=== PATIENT | female | born 1940 | race Caucasian/White ===

== ENCOUNTER → 2017-10-01 | Outpatient (CLI) | payer BC ==
[~2017-10-01] MED LIST: AMBIEN 5 MG TABL5 M1 PO; ASPIRIN EC325 M1 PO; ASPIRIN325; CELEBREX 200 M200 MG PO; COLACE 100 MG100 MG; FLEXERIL PO; FLUZONE 2045 MCG/011; HYDROCHLOROTHIA25 M1 PO; HYDROCODON-ACE1 EAC8 PO; IRON325; IRON325 PO; MIRALAX255 GM PO; MORPHINE SULFAT15 M3; NEURONTIN 300300 M1 PO; NEURONTIN 300M300 M2; NORCO 5-325 TA1 EACH; OXYCODONE HCL5 M1; OXYCONTIN10 M1 PO; OXYIR 5 MG CAPSU5 M1 PO; PNEUMOVAX25 MCG/0.5; PREVACID15 MG PO; ROXICODONE5 M1 PO; STOOL SOFTENER1 EAC2 PO; VICODIN ES TAB1 EACH PO; XARELTO10 MG PO; ZETIA10 MG PO
== END ==
LOC: M.RAD 12:45
DX: M54.5 Low back pain (principal)

== ENCOUNTER → 2017-10-14 | Outpatient (CLI) | payer BC | LOC: M.MRI 10-10 14:30 | DX: M47.816 Spondylosis without myelopathy or radiculopathy, lumbar region (principal); M51.26 Other intervertebral disc displacement, lumbar region; M51.36 Other intervertebral disc degeneration, lumbar region; M48.062 Spinal stenosis, lumbar region with neurogenic claudication; M96.1 Postlaminectomy syndrome, not elsewhere classified; M43.27 Fusion of spine, lumbosacral region ==

== ENCOUNTER → 2017-10-20 | Outpatient (CLI) | payer BC | LOC: M.ULTRA 09:06 | DX: G81.94 Hemiplegia, unspecified affecting left nondominant side (principal); I70.90 Unspecified atherosclerosis; I65.29 Occlusion and stenosis of unspecified carotid artery; M19.90 Unspecified osteoarthritis, unspecified site; I10 Essential (primary) hypertension; E78.5 Hyperlipidemia, unspecified ==

== ENCOUNTER → 2018-01-30 | Outpatient (CLI) | payer BC | LOC: M.RAD 10:04 | DX: Z12.31 Encounter for screening mammogram for malignant neoplasm of breast (principal) ==

== ENCOUNTER → 2019-04-28 | Outpatient (CLI) | payer BC ==
--- NOTE | 2019-04-28 15:36 | 2DMMODE ---
[place] [address] 2 D/M-MODE ECHOCARDIOGRAM Name: ALOK VILLALBADontae Borja Room: [facility]#: [id number] Admission: 04/28/19 Attend Phys: Radha Aguilar Discharge: Date of : 38 Date of Service: 04/28/19 1535 Report #: [id number] THIS REPORT FOR: cc: Clemencia Gilmore MD, Jennifer MD Blick,Gunner Mckay MD [facility] ~ APPROVED REPORT Study performed: 04/28/2019 12:26:36 EXAM: Comprehensive 2D, Doppler, and color-flow Echocardiogram Patient Location: Out-Patient BSA: 2.26 HR: 60 bpm BP: 138/78 mmHg Other Information Study Quality: Good Indications CAD 2D Dimensions IVSd: 12.54 (7-11mm) LVOT Diam: 17.46 (18-24mm) LVDd: 41.35 mm PWd: 10.75 (7-11mm) Ascending Ao: 26.74 (22-36mm) LVDs: 31.02 (25-40mm) Aortic Root: 25.30 mm Volumes Left Atrial Volume (Systole) LA ESV Index: 24.60 mL/m2 Aortic Valve AoV Peak Elder.: 1.77 m/s AO Peak Gr.: 12.56 mmHg LVOT Max P.40 mmHg AO Mean Gr.: 6.21 mmHg LVOT Mean P.01 mmHg LVOT Max V: 1.05 m/s AO V2 VTI: 33.30 cm LVOT Mean V: 0.64 m/s TAQUERIA (VTI): 1.88 cm2 LVOT V1 VTI: 26.15 cm AI Carroll: 1.47 m/s2 AI PHT: 730.65 [place] [address] 2 D/M-MODE ECHOCARDIOGRAM Name: CELINA VILLALBA Room: [facility]#: [id number] Admission: 04/28/19 Attend Phys: Radha Aguilar Discharge: Date of : 38 Date of Service: 04/28/19 1535 Report #: [id number] Mitral Valve E/A Ratio: 0.68 MV Decel. Time: 261.06 ms MV E Max Elder.: 0.88 m/s MV PHT: 75.71 ms MVA (PHT): 2.91 cm2 TDI E/Lateral E': 12.57 E/Medial E': 17.60 Medial E' Elder.: 0.05 m/s Lateral E' Elder.: 0.07 m/s Pulmonary Valve PV Peak Elder.: 1.08 m/s PV Peak Gr.: 4.66 mmHg Tricuspid Valve RAP Estimate: 5.00 mmHg TR Peak Gr.: 24.87 mmHg RVSP: 29.87 mmHg PA Pressure: 29.87 mmHg Left Ventricle The left ventricle is normal size. There is normal LV segmental wall motion. There is normal left ventricular wall thickness. Left ventricular systolic function is normal. The left ventricular ejection fraction is within the normal range. LVEF is 60-65%. Grade I - abnormal relaxation pattern. Right Ventricle The right ventricle is normal size. The right ventricular systolic function is normal. Atria The left atrium size is normal. Lipomatus atrial septal hypertrophy is present. The right atrium size is normal. Aortic Valve The aortic valve is normal in structure. Trace aortic regurgitation. There is no aortic valvular stenosis. Mitral Valve The mitral valve is normal in structure. Mild mitral regurgitation. No evidence of mitral valve stenosis. Tricuspid Valve The tricuspid valve is normal in structure. Trace [place] [address] 2 D/M-MODE ECHOCARDIOGRAM Name: CELINA VILLALBA Room: [facility]#: [id number] Admission: 04/28/19 Attend Phys: Radha Aguilar Discharge: Date of : 38 Date of Service: 04/28/19 1535 Report #: [id number] Pulmonic Valve The pulmonary valve is normal in structure. There is no pulmonic valvular regurgitation. Great Vessels The aortic root is normal in size. IVC is normal in size and collapses >50% with inspiration. Pericardium There is no pericardial effusion. <Conclusion> LVEF is 60-65%. Mild mitral regurgitation. <ELECTRONICALLY SIGNED> By: Gunner Bowman MD, FACC 04/28/19 1535 1535 1535 Gunner Bowman MD, FACC /INF
== END ==
LOC: M.CRD 10-22 16:10
DX: I65.23 Occlusion and stenosis of bilateral carotid arteries (principal); I34.0 Nonrheumatic mitral (valve) insufficiency; I25.10 Atherosclerotic heart disease of native coronary artery without angina pectoris; I10 Essential (primary) hypertension

== ENCOUNTER → 2019-09-17 | Outpatient (CLI) | payer BC ==
[2019-09-17 11:42] LABS: CHOLESTEROL 175 mg/dL (<200); HDL CHOLESTEROL 64 mg/dL (>40); LDL CHOLESTEROL 88 mg/dL (<100); SERUM ASSESSMENT Clear; TC:HDL 2.7 Ratio (Not establshd); TRIGLYCERIDE 115 mg/dL (<150); VLDL 23 mg/dL (<40)
== END ==
LOC: M.LAB 11:18
PROVIDERS: ATTEND Nurse Practitioner
DX: E78.5 Hyperlipidemia, unspecified (principal)

== ENCOUNTER → 2019-09-17 | Outpatient (CLI) | payer BC | LOC: M.RAD 09:36 | PROVIDERS: ATTEND Family Medicine | DX: Z12.31 Encounter for screening mammogram for malignant neoplasm of breast (principal) ==

== ENCOUNTER → 2019-09-29 | Outpatient (CLI) | payer BC | LOC: M.RAD 09-27 11:40 | PROVIDERS: ATTEND Nurse Practitioner | DX: R92.2 Inconclusive mammogram (principal); N64.89 Other specified disorders of breast ==

== ENCOUNTER → 2019-10-11 | Outpatient (CLI) | payer BC ==
--- NOTE | 2019-10-12 15:07 | PATH ---
[address] [address] PATHOLOGY RPT PROCEDURE Name: CELINA OQUENDO [id number] Admission: 10/11/19 Date of : 38 Discharge: Report #: [id number] Path Case #: [id number] [facility] Accession Number: [id number] . 01 Material submitted: . breast - RIGHT BREAST, 10:00, 12CM FROM NIPPLE. Modifiers: right, 10:00 . 01 Clinical history: . MAMMOTOME BREAST BIOPSY, RIGHT MASS . 0.81 x 0.76 x 0.75 cm . 02 Diagnosis: Right breast mass, 10:00, 12 cm from nipple, image-guided core biopsies: - INFILTRATING DUCTAL ADENOCARCINOMA, INTERMEDIATE GRADE, SPANNING 6 MM. (See comment) . (BRENDA:[facility]; 10/12/2019) . . . Surgical Pathology Cancer Case Summary . INVASIVE CARCINOMA OF THE BREAST: Biopsy . Procedure ___ Other (specify): Image-guided core biopsies . Specimen Laterality ___ Right . Tumor Site ___ Clock position: 10:00 ___ Distance from nipple: 12 cm . Tumor Size ___ Greatest dimension of largest invasive focus >1 mm: 6 mm . Histologic Type ___ Invasive carcinoma of no special type (ductal) . Histologic Grade ([place] Histologic Score) . Glandular (Acinar)/Tubular Differentiation ___ Score 3 (< 10% of tumor area forming glandular/tubular structures) . Nuclear Pleomorphism ___ Score 2 (cells larger than normal with open vesicular nuclei, visible nucleoli, and moderate variability in both size and shape) [place] [address] PATHOLOGY RPT PROCEDURE Name: CELINA OQUENDO Room: [facility].#: [id number] Admission: 10/11/19 Date of : 38 Discharge: Report #: [id number] Path Case #: [id number] . Mitotic Rate ___ Score 1 . Overall Grade ___ Grade 2 (scores of 6 or 7) . Ductal Carcinoma In Situ (DCIS) ___ Present . Architectural Patterns ___ Solid . Nuclear Grade ___ Grade II (intermediate) . Necrosis ___ Present, focal (small foci or single cell necrosis) . Lymphovascular Invasion ___ Not identified . Microcalcifications ___ Present in invasive carcinoma ___ Present in non-neoplastic tissue . Biomarker Studies ___ Pending . (BRENDA:[facility]; 10/12/2019) [facility] 10/12/2019 [facility]3 Local . 02 Comment: Approximately 20% of the submitted tissues are involved by invasive neoplasm. Breast tumor profile studies are pending on A3 and will be the subject of an addendum report. . Reviewed with Dr. Aly Kim and Dr. Kelly Zepeda, who agree with the diagnosis. . Yadira Callejas ([facility] Breast Navigator) notified at approximately 1405 on 10/12/2019. . (BRENDA:mml; 10/12/2019) . 02 Electronically signed: . Jae Rutherford MD, Pathologist NPI- [id number] [place] [address] PATHOLOGY RPT PROCEDURE Name: CELINA OQUENDO Room: [facility]#: [id number] Admission: 10/11/19 Date of : 38 Discharge: Report #: [id number] Path Case #: [id number] . 01 Gross description: . The specimen is received in formalin, labeled "Celina Oquendo, right breast 10:00 12 cm from nipple". Received are multiple needle cores of fibrofatty tissue measuring 3.8 x 3.2 x 0.5 cm in aggregate dimensions. The specimen is submitted entirely in cassettes A1 through A3. The cold ischemic time is 5 minutes. The total formalin fixation time is 12 hours and 5 minutes. (CAA; 10/11/2019) QAC/QAC 10/11/2019 1632 Local . 02 Pathologist provided ICD-10: C50.912 . 02 CPT . 163586 Specimen Comment: A courtesy copy of this report has been sent to [phone] Specimen Comment: [phone], Specimen Comment: Report sent to ,DR CALLEJAS / DR QURESHI Performed at: 01 [facility] [id number] [facility] [address], [place] [id number] MD Juanpablo Julio MD Phone: [phone] Performed at: 02 [facility] [address] [address], [place], [place] [id number] MD Jae Rutherford MD Phone: [phone]
== END | disposition home or self-care (01) ==
LOC: M.ULTRA 07:52
PROVIDERS: ATTEND Family Medicine
DX: N63.11 Unspecified lump in the right breast, upper outer quadrant (principal); C50.911 Malignant neoplasm of unspecified site of right female breast; R92.8 Other abnormal and inconclusive findings on diagnostic imaging of breast; I10 Essential (primary) hypertension; E78.00 Pure hypercholesterolemia, unspecified; E66.01 Morbid (severe) obesity due to excess calories; K21.9 Gastro-esophageal reflux disease without esophagitis; I25.10 Atherosclerotic heart disease of native coronary artery without angina pectoris; Z68.44 Body mass index [BMI] 60.0-69.9, adult; Z80.3 Family history of malignant neoplasm of breast; Z79.899 Other long term (current) drug therapy; Z98.890 Other specified postprocedural states

== ENCOUNTER → 2019-10-25 | Outpatient (CLI) | payer BC ==
[2019-10-25 13:36] LABS: CREATININE 1.1 mg/dL (0.6-1.3)
== END ==
LOC: M.MRI 12:17
PROVIDERS: ATTEND Surgery
DX: C50.912 Malignant neoplasm of unspecified site of left female breast (principal)

== ENCOUNTER → 2019-11-05 | Outpatient (CLI) | payer BC ==
--- NOTE | ~2019-11-05 | CON ---
[address] [address] CONSULTATION Name: CELINA VILLALBA Room: [facility].#: [id number] Admission: 11/05/19 Attend Phys: Jamir Le MD Discharge: Date of : 38 Report #: [id number] THIS REPORT FOR: //name// cc: Clemencia Gilmore MD,Reina Francisco MD ~ THIS REPORT FOR: //name// CC: Jamir Yadav DATE OF SERVICE: 11/05/2019 RADIATION ONCOLOGY FOLLOWUP NOTE REFERRING PHYSICIANS: Dr. Lillian Basilio as well as Cassandra Finney MD and Dr. Gilmore. 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 HISTORY OF PRESENT ILLNESS: The patient is an 79-year-old woman who had a routine mammogram performed on 09/17/2019 which revealed a density which was increasing in size in the upper outer quadrant of the right breast and so then she had unilateral diagnostic mammogram, which showed this density that measured 0.8 cm x 1.1 cm in the upper outer quadrant of the right breast. The patient ended up having a core biopsy performed on 10/12/2019 and that revealed an infiltrating ductal carcinoma, which was intermediate grade and spanned 0.6 cm on the core biopsy specimen and that was 95% estrogen receptor positive and 90% progesterone receptor positive and it was HER2 of 2+, but the FISH was negative. Ki-67 was 10%. The patient also had a breast MRI on 10/25/2019, which showed the upper outer right breast biopsy site with no residual enhancing tumor and there was no evidence of abnormal axillary adenopathy. The patient presents to discuss treatment options. PAST MEDICAL HISTORY AND PAST SURGICAL HISTORY: She had bilateral cataract repair in the past. She has hypertension. She had back surgery in 2011, followed by a packed red blood cell transfusion. She has a history of hemorrhoids and diverticulitis. MEDICATIONS: 81 mg of aspirin, ezetimibe, Pepcid, losartan, omeprazole, selenium. ALLERGIES: The patient [place] [address] CONSULTATION Name: CELINA VILLALBA Room: [facility]#: [id number] Admission: 11/05/19 Attend Phys: Jamir Le MD Discharge: Date of : 38 Report #: [id number] FAMILY HISTORY: Father had metastatic renal cell cancer. She has 7 brothers and 5 sisters and in that family the siblings; one had stomach cancer, one had lung cancer, one had leukemia and there was 2 sisters had breast cancer and one that had lung cancer. There was a questionable cancer in the paternal grandmother, questionable cancer in paternal uncle and a questionable cancer in maternal uncle. REVIEW OF SYSTEMS: GENERAL: The patient denied having any fevers or chills. SKIN: The patient denied having color changes. LYMPH NODES: The patient denied having enlarged or painful glands in the neck. ENDOCRINE: The patient denied having any hot or cold intolerance. HEMATOLOGY AND IMMUNOLOGY: The patient denied having any anemia. MUSCULOSKELETAL: The patient denied having any arthritis. HEAD AND NECK: The patient denied having any headaches. RESPIRATORY: The patient denied having shortness of breath. CARDIOVASCULAR: The patient denied having palpitations. GASTROINTESTINAL: The patient denied having nausea or vomiting. NEUROLOGIC: The patient denied having any focal weakness. PHYSICAL EXAMINATION: With my nurse, Diana Mar, present: VITAL SIGNS: Height 5 feet 5 inches, weight 261.8 pounds, blood pressure 132/57, pulse 61, temperature 97.2 degrees Fahrenheit, oxygen saturation was 96%. LYMPH NOES: She had no palpable cervical or supraclavicular or axillary lymphadenopathy. HEART: Had a regular rate and rhythm without murmur. LUNGS: Clear to auscultation. BREASTS: Right breast had no suspicious palpable masses. The left breast had no suspicious palpable masses. ABDOMEN: Nontender. Spleen was not palpable. Liver was at the costal margin. EXTREMITIES: Had no clubbing, cyanosis or edema. EYES: Cranial nerves 2-12 are intact. Sensation was intact. She had 5/5 strength throughout. ASSESSMENT AND PLAN: The patient is pursuing breast conservation therapy. The patient was told that her options are after lumpectomy left with sampling to include a partial breast irradiation with SRINIVAS implant to decrease the chance of local recurrence versus external beam radiation therapy versus just an antiestrogen alone. She was told based on the CALGB group study of an antiestrogen alone versus antiestrogen radiation therapy that radiation therapy further reduce the chance of local recurrence, though there is no survival difference and she was interested in reducing her chance of local recurrence. The efficacy of the SRINIVAS implant can be found in the update from [employer] which makes the SRINIVAS implant and they are 5 years actually rate of ipsilateral breast tumor recurrence rate was only 3.3% [place] [address] CONSULTATION Name: CELINA VILLALBA Room: [facility]#: [id number] Admission: 11/05/19 Attend Phys: Jamir Le MD Discharge: Date of : 39 Report #: [id number] was good to excellent and more than 95% of the patients spread. So the risks, benefits, logistics of radiation therapy were discussed with the patient in detail. She was interested in going ahead and proceeding with radiation therapy. Thank you very much for this consult. By: 1430 1521Drabia Le MD /nt
== END ==
LOC: M.RTH 02:58
PROVIDERS: ATTEND Radiology Radiation Oncology
DX: C50.411 Malignant neoplasm of upper-outer quadrant of right female breast (principal); I10 Essential (primary) hypertension

== ENCOUNTER → 2019-11-10 | Outpatient (CLI) | payer BC ==
[~2019-11-10] MED LIST changes: +ASPIRIN EC81 M1 PO; -ASPIRIN325; +COZAAR 50 MG TA50 M1 PO; +KEFLEX500 M1 PO; +LORCET 5-325 M1 EACH PO; +METAMUCIL1 EAC1 PO; +MIRALAX119 GM PO; +PEPCID40 MG PO; +PRILOSEC OTC20 MG PO; +SELENIMIN200 MCG PO; +VITAMIN D21250 MC1 PO; +VITAMIN D32400 UNIT/ PO
== END | disposition home or self-care (01) ==
LOC: M.ULTRA 08:16 → M.LAB 08:16 → M.ULTRA 10:00
PROVIDERS: ATTEND Surgery
DX: C50.911 Malignant neoplasm of unspecified site of right female breast (principal); R92.1 Mammographic calcification found on diagnostic imaging of breast; Z79.82 Long term (current) use of aspirin; Z98.890 Other specified postprocedural states; Z79.899 Other long term (current) drug therapy

== ENCOUNTER → 2019-11-12 | Day surgery (SDC) | payer BC ==
[2019-11-12 09:33] LABS: HEMATOCRIT 39.5 % (37.0-47.0); HEMOGLOBIN 13.6 gm/dL (12.0-15.0); MCHC 34.3 g/dL (28.0-37.0); MCV 87.3 fL (80.0-100.0); MPV 7.2 fl. (7.2-11.1); RBC 4.52 mil/uL (4.20-5.00); RDW-CV 13.5 % (10.5-14.5); WBC 4.8 thou/uL (4.0-11.0)
[2019-11-12 09:42] LABS: CALCIUM 9.3 mg/dL (8.5-10.1); POTASSIUM 3.9 mmol/L (3.5-5.1)
--- NOTE | 2019-11-12 13:57 | EKG ---
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: : 1940 Requested By: Felisa Spaulding Order Number: [id number] Reading MD: Eric Robert Measurements Intervals [place] Rate: 72 P: 56 [place]: 168 QRS: 5 QRSD: 95 T: 36 QT: 396 QTc: 434 Interpretive Statements Sinus rhythm Low voltage, precordial leads Abnormal R-wave progression, early transition Compared to ECG 11/28/2011 11:29:01 Low QRS voltage now present Left ventricular hypertrophy no longer present Electronically Signed On 11-12-2019 13:57:22 CDT by Eric Robert [email or web address] <ELECTRONICALLY SIGNED> By: Eric Robert MD, FACC 11/12/19 1357 Eric Robert MD, FAC /EPI
--- NOTE | 2019-11-12 16:59 | EKG ---
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[facility] : 1940 Requested By: Felisa Spaulding Order Number: [id number] David MD: Gunner Bowman Measurements Intervals [place] Rate: 82 P: 57 NM: 190 QRS: 18 QRSD: 106 T: 49 QT: 402 QTc: 470 Interpretive Statements Sinus rhythm Abnormal R-wave progression, early transition ST depr, consider ischemia, anterolateral lds Baseline wander in lead(s) V3,V6 Compared to ECG 11/12/2019 09:10:50 no change Electronically Signed On 11-12-2019 16:59:08 CDT by Gunner Bowman [email or web address] <ELECTRONICALLY SIGNED> By: Gunner Bowman MD, FACC 11/12/19 1659 1421 1421 Gunner Bowman MD, FACC /EPI
--- NOTE | 2019-11-16 11:07 | PATH ---
[address] [address] PATHOLOGY RPT PROCEDURE Name: CELINA OQUENDO Room: [facility].#: [id number] Admission: 11/12/19 Date of : 39 Discharge: Report #: [id number] Path Case #: [id number] [facility] Accession Number: [id number] . 01 Material submitted: . PART A: breast - RIGHT BREAST LUMPECTOMY. Modifiers: right PART B: breast - ADDITIONAL SPECIMEN INFERIOR MEDIAL MARGIN. Modifiers: right PART C: lymph node - RIGHT AXILLARY SENTINEL LYMPH NODE NEOPROBE 1099. Modifiers: right . 01 Clinical history: . RIGHT BREAST CANCER A. SHORT STITCH SUPERIOR, LONG STITCH LATERAL, DOUBLE STITCH ANTERIOR B. STITCH NEW MARGIN . 02 Diagnosis: A. Right breast lumpectomy: - INFILTRATING DUCTAL ADENOCARCINOMA, INTERMEDIATE GRADE, SPANNING 4 MM, ADJACENT TO PRIOR BIOPSY SITE (INCLUDING LOCALIZATION SEED), WITH ALL SURGICAL MARGINS FREE OF INVOLVEMENT AND CLOSEST (POSTERIOR) LOCATED 1.8 MM AWAY. - MINIMAL DUCTAL CARCINOMA IN SITU (DCIS), NUCLEAR GRADE II, SPANNING LESS THAN 1 MM, WITH ALL SURGICAL MARGINS FREE OF INVOLVEMENT AND CLOSEST (INFERIOR) LOCATED 2.3 MM AWAY. (SEE COMMENT) . B. Additional specimen inferior medial margin: - Breast tissue with changes of prior biopsy/biopsy cavity, usual ductal epithelial hyperplasia, luminal calcifications and medial calcification of blood vessels, negative for malignancy and atypia. (See comment) . C. Right axillary sentinel lymph node (NeoProbe 1099): - One benign lymph node (0/1). (See comment) . (BRENDA:mmgurvindre; 11/15/2019) . . Surgical Pathology Cancer Case Summary . INVASIVE CARCINOMA OF THE BREAST: Resection . Procedure ___ Excision (less than total mastectomy) . Specimen Laterality ___ [place] [address] PATHOLOGY RPT PROCEDURE Name: CELINA OQUENDO Room: [facility].#: [id number] Admission: 11/12/19 Date of : 38 Discharge: Report #: [id number] Path Case #: [id number] . + Tumor Site + ___ Clock position: 10 o'clock (see comment) + ___ Distance from nipple: 12.0 cm (see comment) . Tumor Size ___ Greatest dimension of largest invasive focus >1 mm: 4 mm (see comment) . Histologic Type ___ Invasive carcinoma of no special type (ductal) . Histologic Grade ([place] Histologic Score) . Glandular (Acinar)/Tubular Differentiation ___ Score 3 (<10% of tumor area forming glandular/tubular structures) . Nuclear Pleomorphism ___ Score 2 (cells larger than normal with open vesicular nuclei, visible nucleoli, and moderate variability in both size and shape) . Mitotic Rate ___ Score 1 . Overall Grade ___ Grade 2 (scores of 6 or 7) . + Tumor Focality + ___ Single focus of invasive carcinoma . Ductal Carcinoma In Situ (DCIS) ___ Present + ___ Negative for extensive intraductal component (EIC) . + Size (Extent) of DCIS + Estimated size of DCIS is less than 1 mm . + Architectural Patterns + ___ Solid . + Nuclear Grade + ___ Grade II (intermediate) . + Necrosis + ___ Not identified . + Lobular Carcinoma In Situ (LCIS) + ___ [place] [address] PATHOLOGY RPT PROCEDURE Name: CELINA OQUENDO Room: [facility]#: [id number] Admission: 11/12/19 Date of : 38 Discharge: Report #: [id number] Path Case #: [id number] . Invasive Carcinoma Margins ___ Uninvolved by invasive carcinoma Distance from closest margin: ___ Specify 1.8 mm . + Specify closest margin(s): Posterior . + Distance from other margins: + ___ Inferior: 3 mm . DCIS Margins ___ Uninvolved by DCIS . Distance from closest margin: ___ Specify: 2.3 mm . Specify closest margin(s): Inferior . Regional Lymph Nodes ___ Uninvolved by tumor cells Total Number of Lymph Nodes Examined: 1 Number of [place] Nodes Examined: 1 . Treatment Effect in the Breast ___ No known presurgical therapy . + Lymphovascular Invasion + ___ Not identified . + Dermal Lymphovascular Invasion + ___ No skin present . . PATHOLOGIC STAGE CLASSIFICATION (pTNM, AJCC 8th Edition) . Primary Tumor (pT) ___ pT1b:Tumor >5 mm but</=10 mm in greatest dimension . Regional Lymph Nodes Modifier ___ (sn):[place] node evaluated. . Regional Lymph Nodes (pN) ___ pN0:No regional lymph node metastasis identified or ITCs only# . + Additional Pathologic Findings: Small ductal papilloma . + [place] [address] PATHOLOGY RPT PROCEDURE Name: CELINA OQUENDO Room: [facility]#: [id number] Admission: 11/12/19 Date of : 38 Discharge: Report #: [id number] Path Case #: [id number] + ___ Breast Biomarker Testing Performed on Previous Biopsy + Testing Performed on , A3 . + Estrogen Receptor (ER) + ___ Positive: 95% . + Progesterone Receptor (PgR) + ___ Positive: 90% . + HER2 (by immunohistochemistry) + ___ Equivocal (Score 2+) . + HER2 (by in situ hybridization) + ___ Negative (not amplified) . + ___ Ki-67 percentage of positive nuclei: 10% . + Microcalcifications + ___ Present in non-neoplastic tissue . (BRENDA:[facility]; 11/15/2019) [facility] 11/16/2019 1014 Local . 02 Comment: The site of the tumor in the lumpectomy specimen provided in the synoptic data is obtained from the information given from the prior right breast biopsy ([id number]). The span of invasive tumor (6 mm) was larger in the prior biopsy than that found in the lumpectomy specimen (4 mm). . Properly-controlled Keratin AE1/AE3 immunohistochemical stain performed on C1 shows no evidence of metastatic tumor. . (BRENDA:[facility]; 11/15/2019) . 02 Electronically signed: . Jae Rutherford MD, Pathologist NPI- [id number] . 01 Gross description: . A. Received in formalin labeled "Celina Oquendo, right breast lumpectomy" and further labeled on the requisition as "short stitch superior/long stitch lateral/double stitch anterior" is an oriented breast lumpectomy specimen weighing 28 g and measuring 7.6 cm from medial to lateral, 4.6 cm from superior to inferior, and 1.8 cm from anterior to posterior. There is a short suture on superior, a long suture on lateral, and a double suture on anterior. The specimen is inked as follows: Superior-red, inferior-blue, anterior-green, posterior-black, lateral-orange, medial-yellow. The specimen is serially [place] [address] PATHOLOGY RPT PROCEDURE Name: CELINA OQUENDO Room: [facility]#: [id number] Admission: 11/12/19 Date of : 38 Discharge: Report #: [id number] Path Case #: [id number] into 15 slices. Present within slices 8-13 is a kolb-white stellate mass measuring 3.0 x 1.4 x 1.2 cm. The mass displays a localization seed within slice 9. The mass is located to the margins as follows: 2.7 cm to superior, grossly abuts inferior, 0.3 cm to anterior, grossly abuts posterior, 3.5 cm to medial, and 1.4 cm to lateral. The uninvolved tissue is yellow-kolb and lobulated with dense kolb-white fibrous areas along the inferior aspect. The specimen is submitted entirely as follows: A1 slice 1, medial margin, perpendicular sections A2-A3 slice 2 A4-A5 slice 3 A6-A7 slice 4 A8-A9 slice 5 A10-A11 slice 6 A12-A13 slice 7 A14-A15 slice 8 A16-A17 slice 9 A18-A19 slice 10 A20-A21 slice 11 A22 slice 12 A23 slice 13 A24 slice 14 A25 slice 15, lateral margin, perpendicular sections The specimen is removed from the patient at 1257 and placed in formalin at 1312 on November 12, 2019. The specimen is removed from formalin at 1850 on November 14, 2019. . B. Received in formalin labeled "Celina Oquendo, additional specimen inferior medial margin" and further labeled on the requisition as "stitch new margin" is an oriented portion of yellow-kolb lobulated breast tissue measuring 3.6 x 2.5 x 1.3 cm. A suture is present on one aspect, indicating the true margin. The true margin is inked black and the opposite aspect is inked blue. The specimen is serially sectioned to reveal a cut surface comprised of 50% kolb-white fibrous tissue and 50% yellow lobulated tissue. The specimen is submitted entirely in cassettes B1-B4. . C. Received in formalin labeled "Celina Oquendo, right axillary sentinel lymph node" is a pink-kolb lymph node measuring 1.2 x 0.7 x 0.5 cm. The specimen is serially sectioned to reveal an unremarkable cut surface. The specimen is submitted entirely in cassette C1. [place] [place] [facility] 11/14/2019 1156 Local . 02 Pathologist provided ICD-10: C50.911, D05.11, N62 . 02 CPT . 143907, 938611, 038462, Y45280 Specimen Comment: A courtesy copy of this report has been sent to [phone] 95-[address]27[place], [place] [address] PATHOLOGY RPT PROCEDURE Name: CELINA OQUENDO [facility] [id number] Admission: 11/12/19 Date of : 38 Discharge: Report #: [id number] Path Case #: [id number] Specimen Comment: [phone] Specimen Comment: Report sent to / DR QURESHI Performed at: 01 [facility] Vasyl Draper [address], [place], [place] [id number] MD Juanpablo Julio MD Phone: [phone] Performed at: 02 [facility] [address], [place], [place] [id number] MD Jae Rutherford MD Phone: [phone]
== END | disposition home or self-care (01) ==
LOC: M.SUR 05:30
PROVIDERS: Anesthesiology; ATTEND Surgery
DX: C50.911 Malignant neoplasm of unspecified site of right female breast (principal); R59.0 Localized enlarged lymph nodes; Z98.890 Other specified postprocedural states; Z79.899 Other long term (current) drug therapy; Z88.8 Allergy status to other drugs, medicaments and biological substances

== ENCOUNTER → 2020-01-03 | Outpatient (CLI) | payer BC | LOC: M.RAD 10:54 | PROVIDERS: ATTEND Internal Medicine Hematology & Oncology | DX: M81.0 Age-related osteoporosis without current pathological fracture (principal); C50.411 Malignant neoplasm of upper-outer quadrant of right female breast; Z17.0 Estrogen receptor positive status [ER+] ==

== ENCOUNTER → 2020-03-06 | Outpatient (CLI) | payer BC | LOC: M.RAD 09:37 | PROVIDERS: ATTEND Radiology Radiation Oncology | DX: C50.911 Malignant neoplasm of unspecified site of right female breast (principal); N64.89 Other specified disorders of breast; Z17.0 Estrogen receptor positive status [ER+]; Z85.3 Personal history of malignant neoplasm of breast ==

== ENCOUNTER → 2020-06-26 | Outpatient (CLI) | payer BC ==
--- NOTE | 2020-06-26 10:44 | 2DMMODE ---
[place] [address] 2 D/M-MODE ECHOCARDIOGRAM Name: ALOK VILLALBADontae Borja Room: [facility]#: [id number] Admission: 06/26/20 Attend Phys: Radha Aguilar Discharge: Date of : 38 Date of Service: 06/26/20 1043 Report #: [id number] THIS REPORT FOR: cc: Clemencia Gilmore MD, Jennifer MD Blick, David R. MD [facility] ~ APPROVED REPORT Study performed: 06/26/2020 09:19:48 EXAM: Comprehensive 2D, Doppler, and color-flow Echocardiogram Patient Location: Out-Patient BSA: 2.23 HR: 61 bpm BP: 120/70 mmHg Other Information Study Quality: Good Indications CAD Hypertension/HDD 2D Dimensions IVSd: 11.07 (7-11mm) LVOT Diam: 20.87 (18-24mm) LVDd: 43.69 mm PWd: 9.90 (7-11mm) Ascending Ao: 29.48 (22-36mm) LVDs: 28.46 (25-40mm) Aortic Root: 31.03 mm Volumes Left Atrial Volume (Systole) LA ESV Index: 18.40 mL/m2 Aortic Valve AoV Peak Elder.: 1.47 m/s AO Peak Gr.: 8.68 mmHg LVOT Max P.07 mmHg AO Mean Gr.: 4.60 mmHg LVOT Mean P.16 mmHg LVOT Max V: 1.23 m/s AO V2 VTI: 31.77 cm LVOT Mean V: 0.83 m/s TAQUERIA (VTI): 3.18 cm2 LVOT V1 VTI: 29.51 cm AI [place]: 1.66 m/s2 AI PHT: 546.47 [place] [address] 2 D/M-MODE ECHOCARDIOGRAM Name: CELINA VILLALBA Room: [facility]#: [id number] Admission: 06/26/20 Attend Phys: Radha Aguilar Discharge: Date of : 38 Date of Service: 06/26/20 1043 Report #: [id number] Mitral Valve E/A Ratio: 0.64 MV Decel. Time: 298.36 ms MV E Max Elder.: 0.84 m/s MV PHT: 86.52 ms MVA (PHT): 2.54 cm2 TDI E/Lateral E': 14.00 E/Medial E': 10.50 Medial E' Elder.: 0.08 m/s Lateral E' Elder.: 0.06 m/s Pulmonary Valve PV Peak Elder.: 1.18 m/s PV Peak Gr.: 5.59 mmHg Tricuspid Valve RAP Estimate: 5.00 mmHg TR Peak Gr.: 28.14 mmHg RVSP: 33.14 mmHg PA Pressure: 33.14 mmHg Left Ventricle The left ventricle is normal size. There is normal LV segmental wall motion. There is normal left ventricular wall thickness. Left ventricular systolic function is normal. The left ventricular ejection fraction is within the normal range. LVEF is 55-60%. Grade I - abnormal relaxation pattern. Right Ventricle The right ventricle is normal size. The right ventricular systolic function is normal. Atria The left atrium size is normal. The right atrium size is normal. Aortic Valve Mild aortic valve sclerosis. Mild aortic regurgitation. There is no aortic valvular stenosis. Mitral Valve The mitral valve is normal in structure. Mild mitral regurgitation. No evidence of mitral valve stenosis. Tricuspid Valve The tricuspid valve is normal in structure[place] [address] 2 D/M-MODE ECHOCARDIOGRAM Name: CELINA VILLALBA Room: [facility]#: [id number] Admission: 06/26/20 Attend Phys: Radha Aguilar Discharge: Date of : 38 Date of Service: 06/26/20 1043 Report #: [id number] regurgitation. estimated pa pressure 35 mm Hg Pulmonic Valve The pulmonary valve is normal in structure. There is no pulmonic valvular regurgitation. Great Vessels The aortic root is normal in size. IVC is normal in size and collapses >50% with inspiration. Pericardium There is no pericardial effusion. <Conclusion> LVEF is 55-60%. Mild aortic valve sclerosis. Mild aortic regurgitation. Mild mitral regurgitation. Mild tricuspid regurgitation. estimated pa pressure 35 mm Hg <ELECTRONICALLY SIGNED> By: Gunner Bowman MD, [facility] 06/26/20 1043 1043 1043 Gunner Bowman MD, FACC /INF
== END ==
LOC: M.CRD 09:33
PROVIDERS: ATTEND Internal Medicine
DX: I08.3 Combined rheumatic disorders of mitral, aortic and tricuspid valves (principal); I25.10 Atherosclerotic heart disease of native coronary artery without angina pectoris; I10 Essential (primary) hypertension

== ENCOUNTER → 2020-10-18 | Outpatient (CLI) | payer BC | LOC: M.RAD 10:00 | PROVIDERS: ATTEND Radiology Radiation Oncology | DX: C50.411 Malignant neoplasm of upper-outer quadrant of right female breast (principal); Z17.0 Estrogen receptor positive status [ER+] ==

== ENCOUNTER → 2020-11-15 | Outpatient (CLI) | payer BC | LOC: M.RAD 10:06 | PROVIDERS: ATTEND Internal Medicine Hematology & Oncology | DX: M81.0 Age-related osteoporosis without current pathological fracture (principal) ==